=== PATIENT | female | born 1965 | race Caucasian/White ===

== ENCOUNTER 2017-09-11 21:58 | Emergency (ER) | payer MEDICAID ==
[~2017-09-11] VITALS: Ht 167.6 cm; Wt 65.9 kg
[~2017-09-11 21:58] MED LIST: ALBU18HF2 INH; AMBR5TAB3 PO; CARV3.1289 PO; FURO40TA4 PO; LISI-222 PO; MAGN400O6 PO; MORP2SYR IV; MORP4SYR4 IV; NUT.237L32 PO; POTA20TA10 PO; POTA8CAP9 PO; SILD20TA PO; ZOF4I IV; ZOLP5TAB8 PO; [UNRECOGNIZED DRUG - CODE] IV; [UNRECOGNIZED DRUG - REMARK] MC
[2017-09-11 22:25] LABS: BASOPHILS # (AUTO) 0.1 X10'3 (0-0.2); EOSINOPHILS % (AUTO) 0.5 % (0-6); HEMATOCRIT 40.4 % (35.0-45.0); HEMOGLOBIN 13.7 g/dl (12.0-16.0); LYMPHOCYTES # (AUTO) 1.3 X10'3 (1.1-4.8); LYMPHOCYTES % (AUTO) 16.9 % (21-51); MEAN CORPUSCULAR HGB CONC 33.9 % (33.0-36.5); MEAN CORPUSCULAR VOLUME 88.7 FL (78-98); MEAN PLATELET VOLUME 8.2 FL (7.4-10.4); MONOCYTES # (AUTO) 0.8 X10'3 (0-0.9); NEUTROPHILS # (AUTO) 5.4 X10'3 (1.8-7.7); NEUTROPHILS % (AUTO) 70.6 % (42-75); PLATELET COUNT 164 X10'3 (140-440); RED BLOOD COUNT 4.56 X10'6 (4.20-5.60); RED CELL DISTRIBUTION WIDTH 16.5 % (11.5-14.5); WHITE BLOOD COUNT 7.6 X10'3 (4.5-11.0)
[2017-09-11 22:35] LABS: D-DIMER 0.81 MG/L FEU (0-0.50)
[2017-09-11] MEDS ORDERED: HYDROcodone/acetaminophen 10/325mg tab PO ONE (22:45)
[2017-09-11 22:46] LABS: ALANINE AMINOTRANSFERASE 105 U/L (12-78); ALBUMIN 3.8 G/DL (3.4-5.0); ALKALINE PHOSPHATASE 239 IU/L (46-116); ANION GAP 11 (8-16); ASPARTATE AMINO TRANSFERASE 88 U/L (10-37); BILIRUBIN,TOTAL 2.4 MG/DL (0.1-1.0); BLOOD UREA NITROGEN 23 MG/DL (7-18); BUN/CREATININE RATIO 15.3 (6.6-38.0); CALCIUM 8.8 MG/DL (8.5-10.1); CHLORIDE 91 MMOL/L (99-107); GLUCOSE 133 MG/DL (70-104); POTASSIUM 4.2 MMOL/L (3.5-5.1); SODIUM 129 MMOL/L (135-145); TOTAL CARBON DIOXIDE 26.7 MMOL/L (24-32); TOTAL PROTEIN 7.6 G/DL (6.4-8.2); eGFR 37 ML/MIN
[2017-09-11] MEDS ORDERED: furosemide 10 MG/1 ML 10ml inj IV ONE (22:50)
[2017-09-11] MEDS ORDERED: BUME2TAB3 PO (22:58)
[2017-09-11] MEDS ORDERED: NITR100C6 PO (22:59)
[2017-09-11] MEDS ORDERED: SPIR50TA3 PO (23:00)
[2017-09-11 23:37] LABS: URINE AMPHETAMINE SCREEN NEGATIVE (Neg); URINE BARBITUATE SCREEN NEGATIVE (Neg); URINE BENZODIAZEPINES SCREEN NEGATIVE (Neg); URINE CANNABINOID SCREEN NEGATIVE (Neg); URINE COCAINE SCREEN NEGATIVE (Neg); URINE METHADONE SCREEN POSITIVE (Neg); URINE OPIATE SCREEN POSITIVE (Neg); URINE PHENCYCLIDINE SCREEN NEGATIVE (Neg)
[2017-09-11] MEDS ORDERED: enoxaparin 100mg/ml syringe SUBCUT ONE (23:55)
[2017-09-12] MEDS ORDERED: diphenhydrAMINE 50 mg/ml inj IV PRN (01:40)
[2017-09-12] MEDS ORDERED: HYDROcodone/acetaminophen 5mg/325mg tablet PO PRN (01:40)
[2017-09-12] MEDS ORDERED: acetaminophen 325mg tablet PO PRN ×2 (01:40)
[2017-09-12] MEDS ORDERED: HYDROmorphone 1 mg/ml syringe IV PRN ×2 (01:40)
[2017-09-12] MEDS ORDERED: metoclopramide 5 mg/ml inj IV PRN (01:40)
[2017-09-12] MEDS ORDERED: zolpidem 5mg tablet PO PRN (01:40)
[2017-09-12] MEDS ORDERED: HYDROcodone/acetaminophen 10/325mg tab PO PRN (01:40)
[2017-09-12] MEDS ORDERED: diphenhydrAMINE 25mg capsule PO PRN (01:40)
[2017-09-12] MEDS ORDERED: ondansetron/PF 4mg/2ml inj IV PRN (01:40)
[2017-09-12] MEDS ORDERED: mag hydrox/Alum hydrox/simeth 30ml oral suspension PO PRN (01:40)
[2017-09-12] MEDS ORDERED: acetaminophen 650mg rectal suppository RC PRN (01:40)
[2017-09-12] MEDS ORDERED: magnesium hydroxide 30ml (MOM) UD suspension PO PRN (01:40)
[2017-09-12] MEDS ORDERED: morphine 2 MG/ML inj. syringe IV PRN ×2 (01:40)
[2017-09-12] MEDS ORDERED: bisacodyl 10mg suppository rectal RC PRN (01:40)
[2017-09-12 02:00] LABS: LIPASE < 50 U/L (73-393)
[2017-09-12] MEDS: normal saline 1000ml 1,000 ML IV SCH ×2 (03:13→12:16)
[2017-09-12 06:02] LABS: HEMOGLOBIN A1C 6.5 % (4.5-6.2)
[2017-09-12 07:09] LABS: INR 1.3 INR; PARTIAL THROMBOPLASTIN TIME 30 SECONDS (22-32); PROTHROMBIN TIME 13.6 SECONDS (9.0-12.0)
[2017-09-12] MEDS ORDERED: pantoprazole 40 MG vial IV SCH (07:30)
[2017-09-12 07:45] LABS: PHOSPHORUS 3.4 MG/DL (2.3-4.5)
[2017-09-12] MEDS ORDERED: heparin, porcine 5000 units/ml vial SQ SCH (08:00)
[2017-09-12] MEDS ORDERED: vancomycin/NS 1 GM ADD-VANTAGE 250 ML IV SCH ×2 (08:00)
[2017-09-12] MEDS ORDERED: furosemide 10 MG/1 ML 10ml inj IV SCH ×2 (08:00→12:00)
[2017-09-12] MEDS ORDERED: docusate sod 100mg capsule PO SCH (08:00)
[2017-09-12] MEDS: clindamycin 600mg/D5W 50ml 50 ML IV SCH ×2 (08:11→17:36)
[2017-09-12] MEDS ORDERED: lactobacillus rhamnosus 10,000 MMU CELLS/CAPSULE PO SCH (17:30)
[2017-09-12] MEDS ORDERED: morphine 2 MG/ML inj. syringe IV ONE (17:35)
[2017-09-12 18:04] VITALS: BP 117/67
[2017-09-12] MEDS ORDERED: temazepam 15mg capsule PO PRN (21:00)
[2017-09-15] MEDS ORDERED: VANCOMYCIN LEVEL IV ONE (07:30)
[2017-10-24] MEDS ORDERED: DOXY100C43 PO (16:28)
[2017-10-24] MEDS ORDERED: LEVO500T2 PO (16:28)
== END 2017-09-12 18:01 | disposition short-term general hospital (02) ==
LOC: ER 21:58 → ED HOLD 09-12 01:39 → UNDOADMIN 09-12 01:39 → UNDODISIN 09-12 17:55
DX: K81.0 Acute cholecystitis (principal); I50.33 Acute on chronic diastolic (congestive) heart failure; J90 Pleural effusion, not elsewhere classified; N17.9 Acute kidney failure, unspecified; I31.3 Pericardial effusion (noninflammatory); E87.1 Hypo-osmolality and hyponatremia; F17.210 Nicotine dependence, cigarettes, uncomplicated; F15.90 Other stimulant use, unspecified, uncomplicated; G47.30 Sleep apnea, unspecified; K76.9 Liver disease, unspecified; R09.02 Hypoxemia; I27.20 Pulmonary hypertension, unspecified; Z88.0 Allergy status to penicillin
CPT/HCPCS: 36415; 71045; 71250; 74176; 80053; 80305; 83036; 83690; 83735; 83880; 84100; 84443; 84484; 85025; 85379; 85610; 85730; 87502; 87503; 93005; 93308; 96374; 99285; C9113; J1644; J1940; J2270; J2405; J3370; J3490; J7030